=== PATIENT | female | born 1995 | race Caucasian/White ===

== ENCOUNTER 2016-12-24 10:32 | Outpatient (CLI) | payer OTHER, MEDICAID ==
[2016-12-24 10:50] VITALS: BMI 39.0
== END 2016-12-24 12:00 | disposition home or self-care (01) ==
LOC: FBCOUT 10:32 → FBC 10:36 → FBCOUT 12:00
PROVIDERS: ATTEND Licensed Practical Nurse
DX: O26.899 Other specified pregnancy related conditions, unspecified trimester (principal); Z3A.00 Weeks of gestation of pregnancy not specified
CPT/HCPCS: 59025; 81002; G0463

== ENCOUNTER 2016-12-25 10:57 | Outpatient (CLI) | payer OTHER, MEDICAID ==
[2016-12-25 11:56] VITALS: BMI 39.0
== END 2016-12-25 12:05 | disposition home or self-care (01) ==
LOC: FBCOUT 10:57 → FBC 10:58 → FBCOUT 12:05
PROVIDERS: ATTEND Advanced Practice Midwife
DX: O36.8190 Decreased fetal movements, unspecified trimester, not applicable or unspecified (principal); Z3A.00 Weeks of gestation of pregnancy not specified
CPT/HCPCS: 59025; 81002; G0463

== ENCOUNTER 2016-12-26 16:33 | Outpatient (CLI) | payer MEDICAID, OTHER ==
[2016-12-26 16:56] VITALS: BMI 39.0
--- NOTE | 2016-12-26 21:29 | PDOC36 ---
Provider Note Subject: Progress Note Note: Marco/ Fozia came into [facility] at approx 5pm this evening c/o uterine ctxs throughout the day. She was checked by the RN and found to be 2.5/80/-2. Her ctxs were every 3 mins and mild to palpation. She was encouraged to walk and be on the ball. After 2 hours she was rechecked and found to be 3 cms/80/-3 and intact. Due to the regularity of her ctxs and breathing with them we discussed staying on the until for further evaluation. At 8pm she was 4cms and had bloody show. Since she continues to have regular ctxs and some bloody show, we decided to re-evaluate in another 2 hours. Fozia agrees with the plan. If she remains unchanged in her next check she will go home with therapeutic rest. We reviewed that sometimes it can take a while to get into active labor and it is better to be home and sleep a while before this starts. She is currently in the shower and doing well. O/ FHR 130, Accels, no decels, moderate variability Ctxs every 3 mins, regular in their pattern SVE 4/80/-2, light bloody show Intact Afebrile At 16:40 one BP at 144/80, followed by 136/78, 133/78 Maternal HR between 101 - 130 A/ Term Latent labor Maternal Tachycardia Cervical filter changer 3 hours Cat 1 FHR P/ Continue to monitor for active labor Re-assess cervix at 10pm Encourage oral hydration and light diet Support movement and position changes
[2016-12-26] MEDS ORDERED: MORPHINE SULFATE 10 MG/ML SYRINGE IM ONE (22:26)
[2016-12-26] MEDS ORDERED: PROMETHAZINE HCL 25 MG/ML VIAL IM ONE (22:27)
[2016-12-26] MEDS ORDERED: MAGNESIUM HYDROXIDE/AL HYDROX 30 ML UDCUP PO PRN (22:28)
--- NOTE | 2016-12-26 22:42 | PDOC36 ---
Provider Note Subject: Progress Note Note: Augustus Marcelo was in the shower for the last hour. Cervix was rechecked at 10:15pm and she remains the same; /-2, intact. No more bloody show noted. EFM has been placed and the there is a reactive strip. She has had no further elevated BPs. Her ctxs are still regular and about the same in strength. She reports that the shower helped. Feels very tired and we discussed the therapeutic rest option at this point. She agrees to this and understands she may be back in labor through the night or tomorrow. She also feels that she is starting with heartburn. Rx for Maalox ordered. O/ 80/-2 Intact FHR 140, accels, no decels, moderate variability Ctxs every 3 mins Afebrile A/ at 39 weeks and 5 days Latent labor GBS positive Cat 1 FHR P/ Therapeutic rest Home to sleep Return to [facility] with an increase in strength of ctxs, increase in pain, LOF or bleeding Pt and partner understand and agree to the plan
== END 2016-12-26 23:23 | disposition home or self-care (01) ==
LOC: FBC 16:33 → FBCOUT 16:33
PROVIDERS: ATTEND Advanced Practice Midwife
DX: O63.0 Prolonged first stage (of labor) (principal); O99.413 Diseases of the circulatory system complicating pregnancy, third trimester; R00.0 Tachycardia, unspecified; O99.820 Streptococcus B carrier state complicating pregnancy; Z3A.40 40 weeks gestation of pregnancy
CPT/HCPCS: 96372; 59025; 81002; J2270; J2550; G0463

== ENCOUNTER 2016-12-27 12:15 | Inpatient (IN) | payer OTHER, MEDICAID ==
[2016-12-27] MEDS ORDERED: OXYTOCIN 10 UNITS/ML VIAL ONE (14:56)
[2016-12-27] MEDS ORDERED: IV START KIT ONE (14:56)
[2016-12-27] MEDS ORDERED: SODIUM CHLORIDE 0.9% FLUSH 10 ML ONE (14:56)
[2016-12-27] MEDS ORDERED: PUMP TUBING ONE (14:57)
[2016-12-27] MEDS ORDERED: MINERAL OIL 25 ML BOT ONE (14:57)
[2016-12-27] MEDS ORDERED: OXYTOCIN IN LR 500 ML IV ONE ×2 (14:57→15:00)
[2016-12-27] MEDS ORDERED: LIDOCAINE 1% (PRES FREE) 30 ML VIAL ONE (14:57)
[2016-12-27] MEDS ORDERED: LIDOCAINE Viscous 2% 15 ML UDCUP ONE (14:57)
[2016-12-27] MEDS ORDERED: PENICILLIN G POTASSIUM 5 MMU VIAL ONE ×2 (14:58→15:11)
[2016-12-27] MEDS ORDERED: OXYTOCIN 10 UNITS/ML VIAL IM ONE (15:00)
[2016-12-27] MEDS ORDERED: PENICILLIN G POTASSIUM 5 MMU in NS 0.9% (MINI-BAG PLUS) 100 ML IV ONE (15:00)
[2016-12-27] MEDS ORDERED: NS 0.9% (MINI-BAG PLUS) 100 ML IV ONE (15:11)
[2016-12-27] MEDS: LACTATED RINGERS 1,000 ML IV SCH ×3 (15:30→22:07)
--- NOTE | 2016-12-27 16:03 | PCMAN ---
OB Admission Note - History : 1 Term: 0 : 0 Abortions (S&E): 0 Livin EDC:: 12/28/16 Gestational Age (weeks): 39 Days (#/7): 6 Admit Cervical Dilation:: 5 Admit Cervical Effacement (%):: 90 Admit Presentaton:: vertex Membrane Status: Bulging Labor Onset (Date): 12/26/16 Contractions: Yes Contraction Frequency:: every 5 mins Heart Rate:: 130 Status:: Cat 1 EFW:: 8lbs Summary of Course:: Fozia arrived at [facility] this afternoon after waking at 4;30am with onset of uterine contractions. She stayed home and labored there until the contractions became stronger and she decided to come in. She was triaged last night for several hours and sent home with therapeutic rest at aprrox 22:00hrs. She was able to sleep from midnight until 4:30am. Her cervix at discharge was 4/80/-2. When she arrived this afternoon her cervix was unchanged. She labored for 2 hours in the tub and in her room walking. Upon recheck she was found to be 5/90/ -1 with a bulging bag of fluid. She is very agreeable to admit and plans on an epidural after she ambulates some more and uses the tub. She is feeling very tired at this point and is hoping to sleep once she gets the epidural. Fozia initiated care at [facility] and then at [facility]. Her first visit with [facility] was on 12/03/2016. This was a planned . She has gained approx 70lbs in her , BMI 37. Her care has niesha complicated by: - large weight gain - thrombocytopenia - rubella equivocal - marijuana use in early - GBS positive - Labs Blood Type: O (+) positive Hct/Hgb:: 12.7 Rubella Status: Equivocal GBS Status: Positive - Review of Systems Regular uterine contractions - Physical Exam General: Afebrile, Mild Distress Psych/Mental Status: Mood/Affect Appropriate Neurological: Grossly Intact, Alert, Oriented x 4 Lungs: Clear to Auscultation Bilaterally Cardiovascular: Regular Rate and Rhythm Genitourinary: Normal Female Genitalia Rectal Exam: Deferred Extremities: Full ROM Skin: Normal Color, Warm, Dry, Intact - Problems (1) Active labor Status: Acute Code: [id number] Assessment/Plan: A/ AT 39 Weeks and 6 days Active labor GBS positive Cat 1 FHR P/ Ambulate Water immersion Epidural per patient request GBS prophylaxis Anticipate vaginal (2) Previous group B streptococcus complicating , antepartum Status: Acute Code: O09.899 Assessment/Plan: A/ Term GBS Positive P/ Penicillin prophylaxis
[2016-12-27] MEDS ORDERED: FENTANYL/ROPIVACAINE EPIDURAL 250 ML EP ONE (16:04)
[2016-12-27] MEDS ORDERED: EPIDURAL PUMP SET ONE (16:04)
[2016-12-27] MEDS: LACTATED RINGERS 1,000 ML IV PRN ×2 (16:10→18:49)
[2016-12-27 16:11] LABS: HEMATOCRIT 38.7 % (37.0-47.0); HEMOGLOBIN 13.2 gm/l (12.0-16.0); MEAN CELL VOLUME 93.7 fl (81.0-99.0); MEAN CORPUSCULAR HGB CONC 34.1 g/dl (33.0-37.0)
[2016-12-27] MEDS: FENTANYL/ROPIVACAINE EPIDURAL 250 ML EP SCH (16:51)
[2016-12-27] MEDS ORDERED: LACTATED RINGERS 500 ML IV PRN (16:55)
[2016-12-27] MEDS ORDERED: NALOXONE HCL 0.4 MG/ML VIAL IV PRN (16:55)
[2016-12-27] MEDS ORDERED: DIPHENHYDRAMINE HCL 50 MG/1 ML VIAL IV PRN (16:55)
[2016-12-27] MEDS ORDERED: EPHEDRINE SULFATE 50 MG/ML 1ML VIAL IV PRN (16:55)
[2016-12-27] MEDS ORDERED: METOCLOPRAMIDE HCL 5 MG/ML 2ML VIAL IV PRN (16:55)
[2016-12-27] MEDS ORDERED: SODIUM CHLORIDE 0.9% 500 ML IV PRN (16:55)
[2016-12-27] MEDS ORDERED: NALBUPHINE HCL 20 MG/ML AMP IV PRN (16:55)
[2016-12-27] MEDS ORDERED: ONDANSETRON 4 MG/2ML 2 ML VIAL IV PRN (16:55)
[2016-12-27] MEDS ORDERED: EPIDURAL PROCEDURE TRAY ONE (17:10)
[2016-12-27] MEDS ORDERED: ROPIVACAINE 0.5% 30 ML VIAL ONE ×2 (17:10→21:26)
--- NOTE | 2016-12-27 17:19 | PDOC36 ---
Provider Note Subject: Progress Note Note: Augustus Marcelo just received her epidural at 16:45. Tolerated the procedure well. Prior to the epidural she was tachycardic at 145 and her BP's were elevated at 143/86 and 152/76. I suspect this is pain related. Will continue to watch for continued elevation and perform labs as indicated. O/ FHR 130, accels, no decels, moderate variability Ctxs are every 3 mins, strong to palpation BPs have decreased to 126/65 post epidural Maternal heartrate has decreased from 145 to 116 Afebrile SVE at 14:45 5/90/-2, not rechecked 1 dose of PCN infused A/ Active labor Epidural Maternal tachycardia GBS positive Cat 1 FHR P/ Position changes with epidural Anticipate vaginal
[2016-12-27 17:32] VITALS: BMI 39.0
[2016-12-27] MEDS ORDERED: RANITIDINE HCL 25 MG/ML 2ML VIAL IV SCH (18:00)
[2016-12-27] MEDS: FAMOTIDINE 10 MG/ML 2ML VIAL IV SCH (18:00)
[2016-12-27] MEDS ORDERED: PENICILLIN G 3 MIL UNIT PREMIX 50 ML IV ONE ×3 (19:15→23:14)
[2016-12-27] MEDS: PENICILLIN G 3 MIL UNIT PREMIX 3 MMU in Premix (D5W) 50 ml 1 EACH IV SCH ×2 (19:17→23:13)
[2016-12-27 19:35] LABS: AMPHETAMINES/METHAMPHETAMINES NEGATIVE (NEGATIVE); COCAINE NEGATIVE (NEGATIVE); MARIJUANA NEGATIVE (NEGATIVE); METHADONE NEGATIVE (NEGATIVE); OPIATES POSITIVE (NEGATIVE); TRICYCLIC ANTIDEPRESSANTS NEGATIVE (NEGATIVE)
--- NOTE | 2016-12-27 23:03 | PDOC36 ---
Provider Note Subject: CNM Progress Note Note: S: Feeling more pain and pressure with contractions. Pain is mostly in back. O: Contractions q 3, 50-60 sec, mod to firm quality FHR 130, normal variabiity, accels present Cx 8/100/+1 baby now OA and no longer assynclitic Fluid remains clear, increase in bloody show A: Good labor progress P: Anticipate
[2016-12-28] MEDS: LACTATED RINGERS 1,000 ML IV PRN ×4 (00:11→17:48)
[2016-12-28] MEDS ORDERED: PENICILLIN G 3 MIL UNIT PREMIX 50 ML IV ONE ×4 (03:02→15:03)
[2016-12-28] MEDS: PENICILLIN G 3 MIL UNIT PREMIX 3 MMU in Premix (D5W) 50 ml 1 EACH IV SCH ×4 (03:05→15:06)
--- NOTE | 2016-12-28 07:22 | PDOC36 ---
Provider Note Subject: CNM progress note (Late entry due to involvement in pt care) Note: S: Reports wanting to push. Has been pushing 1 hr without significant progress. O: Cx anterior lip- not able to reduce FHR 150, moderate variability, accels present. Contractions q 3, 40-60, mod A: Slow steady progress P: Redose epidural and labor down. Recheck when has urge to push or rectal pressure.
[2016-12-28] MEDS ORDERED: ONDANSETRON 4 MG/2ML 2 ML VIAL IM ONE (07:57)
[2016-12-28] MEDS ORDERED: OXYTOCIN IN LR 500 ML IV PRN (08:16)
[2016-12-28] MEDS ORDERED: LACTATED RINGERS 1,000 ML IV SCH (08:30)
[2016-12-28] MEDS ORDERED: ROPIVACAINE 0.5% 30 ML VIAL ONE (08:46)
[2016-12-28] MEDS ORDERED: SODIUM CHLORIDE 0.9% FLUSH 10 ML ONE (08:55)
[2016-12-28] MEDS ORDERED: EPIDURAL PUMP SET ONE (09:36)
[2016-12-28] MEDS: FENTANYL/ROPIVACAINE EPIDURAL 250 ML EP SCH (09:38)
[2016-12-28] MEDS ORDERED: FAMOTIDINE 10 MG/ML 2ML VIAL IV PRN (11:51)
[2016-12-28] MEDS: LACTATED RINGERS 1,000 ML IV SCH ×6 (11:52→17:49)
--- NOTE | 2016-12-28 13:38 | PDOC36 ---
Provider Note Subject: Labor Progress Note Note: S: Resting in bed. Feeling some pressure in lower back/bottom. Feeling more comfortable with contractions. O: EFM: 130/moderate variability/accels present [place]: q 2-4 mins, firm to palpation SVE: 10/100/+1 VS: BP 138/82 HR 107, T 36.7C Pitocin at 13 mU/min A: Pitocin augmentation secondary to arrest of dilation Second stage FHR Cat 1 SROM x 16 hours; afebrile Maternal tachcardia and labile BPs; primarily 130s/70s with occasional elevated BP GBS pos: receiving prophylaxis P: Labor down 2 hours. Starting pushing in two hours or PRN. Continue with pitocin augmentation. PIH workup with persistent elevated BPs.
--- NOTE | 2016-12-28 13:40 | PDOC36 ---
Provider Note Subject: Labor Progress Note Note: S: Resting in bed on right side. Reports that she continues to have pain in right hip. Denies rectal pressure. Reports feeling very hungry but has been vomiting all of her fluids. O: EFM: 140/moderate variability/accels present/decels absent [place]: q 3-5 mins, moderate to firm to palpation SVE: 9/100/-1/JENNIFER (flexed), minimal descent with contraction VS: BP 142/93, HR 112, T 36.9 C A: Arrest of dilation AROM x 12 hours, fluid slightly bloody, afebrile FHR Cat 1 GBS positive; receiving prophylaxis Maternal fatigue Suspected inadequate contractions Labile BPs; primarily 130s/70s P: Recommended staring pitocin augmentation with patient. Patient very tearful regarding lack of change, primarily in regards to uncontrolled pain in hip. RN to contact anesthesia to evaluate patient. Zofran IV PRN for nausea; will try to give protein shake. Reassess SVE after at least 2 hours of active labor pattern or PRN. PIH workup with persistent elevated BPs.
[2016-12-28] MEDS ORDERED: MINERAL OIL 25 ML BOT TP ONE (18:10)
[2016-12-28] MEDS ORDERED: PHYTONADIONE (VIT K) 1 MG/0.5 ML AMP ONE (19:08)
[2016-12-28] MEDS ORDERED: ERYTHROMYCIN OPHTH OINT 0.5% 1 APPLIC/TUBE ONE (19:08)
[2016-12-28] MEDS ORDERED: HEP B VIR VACC RECOMB 10 MCG/0.5 ML VIAL IM V ONE (19:08)
[2016-12-28] MEDS ORDERED: MEASLES,MUMPS&RUBELLA VACCINE 0.5 ML VIAL SUB-Q V ONE (19:10)
[2016-12-28] MEDS ORDERED: CALCIUM CARBONATE 500 MG TAB.CHEW PO PRN (19:10)
[2016-12-28] MEDS ORDERED: HYDROCODONE/ACETAMINOPHEN 5/325MG TABLET PO PRN (19:10)
[2016-12-28] MEDS ORDERED: BENZOCAINE/MENTHOL 60 APPLIC/BOT TP PRN (19:10)
[2016-12-28] MEDS ORDERED: DOCUSATE SODIUM 100 MG CAPSULE PO PRN (19:10)
[2016-12-28] MEDS ORDERED: LANOLIN 50 APPLIC/7G TUBE TP PRN (19:10)
[2016-12-28] MEDS ORDERED: ACETAMINOPHEN 325 MG TABLET PO PRN (19:10)
[2016-12-28] MEDS ORDERED: LACTATED RINGERS 1,000 ML ONE (19:27)
[2016-12-28] MEDS: IBUPROFEN 800 MG TABLET PO SCH (20:19)
[2016-12-29] MEDS: IBUPROFEN 800 MG TABLET PO SCH ×3 (06:34→14:03)
[2016-12-29] MEDS: LACTATED RINGERS 1,000 ML IV SCH (10:24)
[2016-12-29] MEDS: PENICILLIN G 3 MIL UNIT PREMIX 3 MMU in Premix (D5W) 50 ml 1 EACH IV SCH (10:24)
[2016-12-29] MEDS: FAMOTIDINE 10 MG/ML 2ML VIAL IV SCH (10:24)
[2016-12-29] MEDS: FENTANYL/ROPIVACAINE EPIDURAL 250 ML EP SCH (10:25)
--- NOTE | 2016-12-29 16:53 | PCMDEL ---
Delivery Note - Labor 1st stage (hr/min):: 11 hours 2nd stage (hr/min):: 3 hours 3rd stage (hr/min):: 14 mins Total (hr/min):: 14 hours 14 mins Pushed (hr/min):: 3 hours - Delivery Delivery (Date): 12/28/16 Delivery (Time): 18:28 Infant Gender: Male Weight: 4.337 kg Length: 1 ft 10 in Position: OA Umbilical Cord: 3 Vessel Delayed Cord Clamping:: > 3 min 1 Minute Total: 8 5 Minute Total: 9 Placenta:: Intact/Nguyen EBL:: 300 Perineum:: bilateral 1st degree labial lacerations. Repaired Suture:: 4.0 vicryl SH Anesthesia/Meds:: epidural Length ROM:: 13 hours 28 mins Comments:: Patient arrived to [facility] in early active labor (4/90/-2). Progressed slowly over two hours and was admitted at 5/90/-2 and received epidural anesthesia for pain management. SVE unchanged after several hours so AROM augmentation was performed for clear fluid. Patient progressed steadily until 9.5 cm and had arrest of dilation at 9.5/100/-1. Infant determined to be JENNIFER and pitocin augmentation was recommended and initiated. FHR remained Cat 1 during first stage of labor. VS stable aside from some labile BPs to mild criteria. Patient reported increased lower back pressure and was found to be complete. Labored down 2 hours. Started pushing after laboring down 2 hours. Pushed in various positions (side lying, squatting, hands and knees, semi-fowlers, stranded beetle) with steady progress. Supported by mother, FOB and friend. FHR remained Cat 2 during second stage due to periods of minimal variability, variables and occasional late decels. Overall, variability was moderate and fetus had good recovery between contractions. Long and positive turtle sign. Placed in Yusef during assessment. Anterior shoulder noted to be released but fetus remained undelivered with moderate traction until next contraction facilitated rotation from LOT to ROT. placed on maternal abdomen and had spontaneous cries and respirations. DCC x 8 mins. AMTSL with IV pitocin. Spontaneous delivery of intact placenta in Nguyen presentation. Fundus firm following delivery. Perineum inspected and noted to be intact. Two bilateral labial lacerations repaired under epidural anesthesia with good approximation. Maternal and status stable in immediate period.
[2016-12-30] MEDS: IBUPROFEN 800 MG TABLET PO SCH ×2 (02:10→02:11)
--- NOTE | 2016-12-30 11:03 | PDOC39B ---
Hospital Course: ADMIT DATE: 12/27/16 DISCHARGE DATE: 12/30/2016 ADMISSION DIAGNOSES: Active Labor PROCEDURES: HISTORY OF PRESENT ILLNESS: 21 year old G1 T0 L0 at 40 weeks 0 days presenting with active labor. HOSPITAL COURSE: The patient is ready for discharge today. Feeling tired following the and hasn't slept much. We discussed getting naps in during the day because she will be up at night feeding the baby. When she gets home she needs to rest and focus on nursing, especially since the baby is not waking up for feeds. His bili is high-intermediate and we talked about monitoring jaundice; watching for the progression of the skin yellowing down to the belly button and the baby sleeping more than usual. He has a f/u with peds Wednesday. Fozia has a breast pump and reports obtaining a few drops only. Reassured her this is normal and she will eventually have more milk production. Keep the baby at the breast every 2-3 hours or on demand. Will have see Fozia before she leaves today. Otherwise Fozia is doing well. Minimal cramping noted. Declines RX for Ibuprofen. Eating, drinking and ambulating. Changing her pad when she voids but reports minimal lochia. Dallas is in the room and supportive. He helps her with positioning of the baby at the breast. By day of discharge the patient is stable, well and ready to go home. - Physical Exam Vital Signs: Temp Pulse Resp BP Pulse Ox 98.1 F 90 16 136/74 12/30/16 08:45 12/30/16 08:45 12/30/16 08:45 12/30/16 08:45 General: Afebrile Psych/Mental Status: Mood/Affect Appropriate Neurological: Grossly Intact HEENT: Atraumatic Cardiovascular: Regular Rate and Rhythm Breast: Soft, Tenderness, Nipples Intact Fundus: Firm Abdomen: Normal Bowel Sounds Genitourinary: Normal Female Genitalia Lochia: Light Rectal Exam: Deferred Extremities: Full ROM Skin: Normal Color, Warm, Dry, Intact - Discharge Diagnosis (1) Active labor Status: Acute Assessment/Plan: A/ AT 39 Weeks and 6 days Active labor GBS positive Cat 1 FHR P/ Ambulate Water immersion Epidural per patient request GBS prophylaxis Anticipate vaginal (2) Previous group B streptococcus complicating , antepartum Status: Acute Assessment/Plan: A/ Term GBS Positive P/ Penicillin prophylaxis (3) normal course Status: Acute Assessment/Plan: A/ Day 2 s/p vaginal Breast feeding with some difficulty P/ D/C home later today after more help F/U with NOHELIA in 2 weeks F/U with this week F/U with NB provider Wednesday - Discharge Plan Condition: Good Disposition: Home Instruction Forms: Vaginal Discharge Instructions Additional Instructions: Midwifery 'After the ' handout given to patient. Follow-Up: Leesa Salgado CNM [Primary Care Provider] - In 2 weeks
--- NOTE | 2016-12-30 13:04 | PDOC44 ---
- Subjective Day: 1 (Approx 20hrs PP) Note from 12/29/16 Fozia is doing well. Baby has not been latching well, so she has been feeding him pumped colostrum through a syringe. Will be seen by today. Her bottom feels very swollen and sore. Reports Flatus, Reports Pain Tolerable, Reports (Attempting), Reports Lochia Moderate, Reports Tolerating Regular Diet - Objective Temp Pulse Resp BP Pulse Ox 98.1 F 90 16 136/74 12/30/16 08:45 12/30/16 08:45 12/30/16 08:45 12/30/16 08:45 Current Medications Generic Name Dose Route Start Last Admin Trade Name Freq PRN Reason Stop Dose Admin Acetaminophen 325 - 650 mg 12/28/16 19:10 Tylenol PO Q4H PRN Pain (Mild) Acetaminophen/Hydrocodone Bitart 1 - 2 tab 12/28/16 19:10 [place] 5/325 PO Q4H PRN Pain (Moderate) Benzocaine/Menthol 1 applic 12/28/16 19:10 Dermoplast TP PRN PRN Patient Comfort Calcium Carbonate/Glycine 500 - 1,000 mg 12/28/16 19:10 Tums PO BID PRN Indigestion Docusate Sodium 100 mg 12/28/16 19:10 Colace PO DAILY PRN Comfort Emollient Ointment 1 applic 12/28/16 19:10 [id number] TP PRN PRN sore nipples Ibuprofen 800 mg 12/28/16 19:15 12/30/16 02:11 Motrin PO Not Given Q6H KESHAWN - Physical Exam General: Afebrile Psych/Mental Status: Mood/Affect Appropriate, Judgment/Insight Intact, Bonding Well Lungs: Clear to Auscultation Bilaterally Cardiovascular: Regular Rate and Rhythm Breast: Soft, Skin intact, Nipples Intact Fundus: Firm, Midline, Below Umbilicus (1FB) Genitourinary: Normal Female Genitalia (Swollen) Lochia: Moderate - Problems:Assessment/Plan (1) normal course Status: Acute Assessment/Plan: A: Day 1 PP s/p -baby not latching well Lochia-stable P: Discussed methods for reducing swelling in her bottom, encouraged taking pain meds regularly : recommendations reviewed, to see pt. Anticipate discharge home tomorrow Disposition: Anticipate DC Home Tomorrow
[2016-12-30 13:45] VITALS: BP 138/84
== END 2016-12-30 17:00 | disposition home or self-care (01) | DRG 774 ==
LOC: FBC 12:15 → FBCOUT 12:15 → FBC 14:53 → FBCOUT 14:53
PROVIDERS: ADMIT Advanced Practice Midwife; ATTEND Licensed Practical Nurse
PROC: 10907ZC Drainage of Amniotic Fluid, Therapeutic from Products of Conception, Via Natural or Artificial Opening (ICD-10-PCS; 2016-12-27)
PROC: 0HQ9XZZ Repair Perineum Skin, External Approach (ICD-10-PCS; principal; 2016-12-28)
PROC: 10E0XZZ Delivery of Products of Conception, External Approach (ICD-10-PCS; 2016-12-28)
DX: O70.0 First degree perineal laceration during delivery (principal); O99.42 Diseases of the circulatory system complicating childbirth; O99.12 Other diseases of the blood and blood-forming organs and certain disorders involving the immune mechanism complicating childbirth; O99.324 Drug use complicating childbirth; D69.6 Thrombocytopenia, unspecified; Z37.0 Single live birth; F12.90 Cannabis use, unspecified, uncomplicated; O99.824 Streptococcus B carrier state complicating childbirth; R00.0 Tachycardia, unspecified; O62.1 Secondary uterine inertia; O75.81 Maternal exhaustion complicating labor and delivery; Z3A.40 40 weeks gestation of pregnancy